=== PATIENT | female | born 1960 | race Caucasian/White ===

== ENCOUNTER 2019-11-25 05:38 | Inpatient (IN) ==
[2019-11-25] MEDS ORDERED: VANCOMYCIN 1,000 MG VIAL ONE (05:53)
[2019-11-25] MEDS ORDERED: DIAZEPAM 5 MG TABLET PO ONE (06:15)
[2019-11-25] MEDS ORDERED: GABAPENTIN 400 MG CAPSULE PO ONE (06:15)
[2019-11-25] MEDS ORDERED: FAMOTIDINE 20 MG TABLET PO ONE (06:15)
[2019-11-25] MEDS ORDERED: ACETAMINOPHEN 500 MG TABLET PO ONE (06:15)
[2019-11-25] MEDS ORDERED: ceFAZolin 2,000 MG in PREMIX 1 EACH IV ONE (06:30)
[2019-11-25] MEDS ORDERED: VANCOMYCIN INJ 1,000 MG in SODIUM CHLORIDE 0.9% 250 ML IV ONE ×2 (06:30→18:57)
[2019-11-25] MEDS ORDERED: ROPIVACAINE 0.5% 30 ML VIAL ONE (06:58)
[2019-11-25] MEDS ORDERED: DEXAMETHASONE 4 MG/1 ML VIAL ONE (06:58)
[2019-11-25] MEDS ORDERED: GABAPENTIN 400 MG CAPSULE ONE (06:59)
[2019-11-25] MEDS ORDERED: FAMOTIDINE 20 MG TABLET ONE (06:59)
[2019-11-25] MEDS ORDERED: ACETAMINOPHEN 500 MG TABLET ONE (06:59)
[2019-11-25] MEDS ORDERED: DIAZEPAM 5 MG TABLET ONE (06:59)
[2019-11-25] MEDS ORDERED: LACTATED RINGERS 1,000 ML IV SCH (07:00)
[2019-11-25] MEDS ORDERED: BACITRACIN OINT 0.9 GM PACK TOP ONE (08:11)
[2019-11-25] MEDS ORDERED: MORPHINE 4 MG/1 ML VIAL IV PRN (10:57)
[2019-11-25] MEDS ORDERED: ONDANSETRON 4 MG/2 ML VIAL IV PRN (10:57)
[2019-11-25] MEDS ORDERED: diphenhydrAMINE CAP 25 MG CAPSULE PO PRN (10:57)
[2019-11-25] MEDS ORDERED: MAGNESIUM HYDROXIDE SUSP 30 ML UDCUP PO PRN (10:57)
[2019-11-25] MEDS ORDERED: propofoL 200 MG/20 ML VIAL IV ONE (11:10)
[2019-11-25] MEDS ORDERED: LIDOCAINE 2% 5 ML VIAL ONE (11:10)
[2019-11-25] MEDS ORDERED: KETAMINE 500 MG/10 ML VIAL ONE (11:10)
[2019-11-25] MEDS ORDERED: BUPIVACAINE SPINAL 0.75% 2 ML AMP SPINAL ONE (11:10)
[2019-11-25] MEDS ORDERED: SODIUM CHLORIDE 0.9% 500 ML IV ONE (11:11)
[2019-11-25] MEDS ORDERED: ESMOLOL 100 MG/10 ML VIAL IV ONE (11:11)
[2019-11-25] MEDS ORDERED: ACETAMINOPHEN 1,000 MG/100 ML VIAL IV ONE (11:11)
[2019-11-25] MEDS ORDERED: TRANEXAMIC ACID 1,000 MG/10 ML VIAL ONE (11:11)
[2019-11-25] MEDS ORDERED: SODIUM CHLORIDE 0.9% 100 ML IV ONE (11:11)
[2019-11-25] MEDS ORDERED: MIDAZOLAM 2 MG/2 ML VIAL ONE (11:11)
[2019-11-25] MEDS ORDERED: fentaNYL 100 MCG/2 ML VIAL ONE (11:11)
[2019-11-25] MEDS: GABAPENTIN 300 MG CAPSULE PO SCH ×3 (13:58→22:42)
[2019-11-25] MEDS: lamoTRIgine 100 MG TABLET PO SCH (13:58)
[2019-11-25] MEDS: KETOROLAC 30 MG/1 ML VIAL IV SCH ×2 (13:59→20:19)
[2019-11-25] MEDS: MORPHINE 4 MG/1 ML VIAL IV PRN ×2 (14:02→22:47)
[2019-11-25] MEDS: LACTATED RINGERS 1,000 ML IV SCH (14:09)
[2019-11-25] MEDS: ceFAZolin 2,000 MG in PREMIX 1 EACH IV SCH (15:08)
[2019-11-25] MEDS: ARIPiprazole 5 MG TABLET PO SCH (22:41)
[2019-11-25] MEDS: DOCUSATE SODIUM 100 MG CAPSULE PO SCH (22:41)
[2019-11-25] MEDS: clonazePAM 0.5 MG TABLET PO SCH (22:42)
[2019-11-25] MEDS: QUEtiapine 100 MG TABLET PO SCH (22:42)
[2019-11-26] MEDS: KETOROLAC 30 MG/1 ML VIAL IV SCH ×2 (00:47→05:48)
[2019-11-26] MEDS ORDERED: ceFAZolin 2,000 MG in PREMIX 1 EACH IV SCH (01:00)
[2019-11-26] MEDS: ceFAZolin 2,000 MG in PREMIX 1 EACH IV SCH (01:53)
[2019-11-26] MEDS: FONDAPARINUX 2.5 MG/0.5 ML SYRINGE SUBCUT SCH (05:49)
[2019-11-26 05:51] LABS: Basophils % 0.3 % (0.0-0.8); Eosinophils % 0.1 % (0.00-10.9); Hematocrit 35.7 VOL% (35.7-47.0); Hemoglobin 11.2 GM/DL (12.0-16.0); Immature Granulocytes % 0.5 %; Immature Granulocytes Absolute 0.05 #; Lymphocytes # 1.6 10*3/uL (1.4-4.0); Lymphocytes % 16.6 % (21.3-54.2); Mean Corpuscular HGB Conc 31.4 GM/DL (32-36); Mean Corpuscular Volume 96.7 FL (87-102); Mean Platelet Volume 10.8 FL (9.6-12.0); Monocytes % 7.9 % (1.7-12.7); Neutrophils % 74.6 % (38.7-73.9); Platelet Count 136 T/CUMM (130-400); Red Blood Count 3.69 MC/CUMM (3.8-5.5); Red Cell Distribution Width 13.5 % (9.3-17.3); White Blood Count 9.6 T/CUMM (4-12)
[2019-11-26 06:17] LABS: Calcium 8.6 MG/DL (8.5-10.1); Osmolality,Calculated 283.8 MOS/KG (273-304)
[2019-11-26] MEDS: lamoTRIgine 100 MG TABLET PO SCH (08:39)
[2019-11-26] MEDS: FLUoxetine 20 MG CAPSULE PO SCH (08:39)
[2019-11-26] MEDS: GABAPENTIN 300 MG CAPSULE PO SCH ×4 (08:39→22:34)
[2019-11-26] MEDS: DOCUSATE SODIUM 100 MG CAPSULE PO SCH ×2 (08:41→22:34)
[2019-11-26] MEDS: ARIPiprazole 5 MG TABLET PO SCH (22:33)
[2019-11-26] MEDS: clonazePAM 0.5 MG TABLET PO SCH (22:33)
[2019-11-26] MEDS: QUEtiapine 100 MG TABLET PO SCH (22:33)
[2019-11-27] MEDS: LACTATED RINGERS 1,000 ML IV SCH (04:25)
[2019-11-27 06:00] LABS: Basophils % 0.5 % (0.0-0.8); Eosinophils # 0.2 10*3/uL (0.0-0.87); Eosinophils % 2.2 % (0.00-10.9); Hematocrit 35.5 VOL% (35.7-47.0); Hemoglobin 10.9 GM/DL (12.0-16.0); Immature Granulocytes % 0.9 %; Immature Granulocytes Absolute 0.07 #; Lymphocytes # 1.7 10*3/uL (1.4-4.0); Mean Corpuscular HGB Conc 30.7 GM/DL (32-36); Mean Corpuscular Volume 98.9 FL (87-102); Mean Platelet Volume 10.5 FL (9.6-12.0); Monocytes % 8.7 % (1.7-12.7); Neutrophils % 65.7 % (38.7-73.9); Platelet Count 116 T/CUMM (130-400); Red Blood Count 3.59 MC/CUMM (3.8-5.5); Red Cell Distribution Width 13.7 % (9.3-17.3); White Blood Count 7.6 T/CUMM (4-12)
[2019-11-27] MEDS: FONDAPARINUX 2.5 MG/0.5 ML SYRINGE SUBCUT SCH (06:04)
[2019-11-27] MEDS: DOCUSATE SODIUM 100 MG CAPSULE PO SCH ×2 (09:26→22:02)
[2019-11-27] MEDS: lamoTRIgine 100 MG TABLET PO SCH (09:26)
[2019-11-27] MEDS: GABAPENTIN 300 MG CAPSULE PO SCH ×4 (09:26→21:59)
[2019-11-27] MEDS: FLUoxetine 20 MG CAPSULE PO SCH (09:26)
[2019-11-27] MEDS: QUEtiapine 100 MG TABLET PO SCH (21:58)
[2019-11-27] MEDS: ARIPiprazole 5 MG TABLET PO SCH (21:58)
[2019-11-27] MEDS: clonazePAM 0.5 MG TABLET PO SCH (21:58)
[2019-11-28] MEDS: FONDAPARINUX 2.5 MG/0.5 ML SYRINGE SUBCUT SCH (06:20)
[2019-11-28 06:23] LABS: Basophils % 0.6 % (0.0-0.8); Eosinophils # 0.2 10*3/uL (0.0-0.87); Eosinophils % 2.9 % (0.00-10.9); Hematocrit 34.6 VOL% (35.7-47.0); Hemoglobin 10.8 GM/DL (12.0-16.0); Immature Granulocytes % 0.8 %; Immature Granulocytes Absolute 0.06 #; Lymphocytes # 1.9 10*3/uL (1.4-4.0); Lymphocytes % 26.5 % (21.3-54.2); Mean Corpuscular HGB Conc 31.2 GM/DL (32-36); Mean Corpuscular Volume 96.4 FL (87-102); Mean Platelet Volume 10.6 FL (9.6-12.0); Monocytes % 8.8 % (1.7-12.7); Neutrophils % 60.4 % (38.7-73.9); Platelet Count 122 T/CUMM (130-400); Red Blood Count 3.59 MC/CUMM (3.8-5.5); Red Cell Distribution Width 13.9 % (9.3-17.3); White Blood Count 7.3 T/CUMM (4-12)
[2019-11-28] MEDS: FLUoxetine 20 MG CAPSULE PO SCH (09:35)
[2019-11-28] MEDS: lamoTRIgine 100 MG TABLET PO SCH (09:35)
[2019-11-28] MEDS: GABAPENTIN 300 MG CAPSULE PO SCH (09:35)
[2019-11-28] MEDS: DOCUSATE SODIUM 100 MG CAPSULE PO SCH (09:36)
[2019-11-28 12:31] VITALS: BP 118/62
== END 2019-11-28 13:52 | disposition home health service (06) | DRG 470 ==
LOC: N.OR 05:38 → N.SDSINP 05:39 → N.3E 10:05
PROVIDERS: ADMIT Orthopaedic Surgery; ATTEND Orthopaedic Surgery

== ENCOUNTER 2020-10-08 13:01 | Inpatient (IN) ==
[2020-10-08] MEDS ORDERED: SODIUM CHLORIDE 0.9% 1,000 ML IV STA (14:20)
[2020-10-08] MEDS ORDERED: ONDANSETRON 4 MG/2 ML VIAL IV STA (14:20)
[2020-10-08 15:08] LABS: Albumin 2.9 G/DL (3.4-5.0); Calcium 10.6 MG/DL (8.5-10.1); Osmolality,Calculated 271.4 MOS/KG (273-304); Potassium 3.9 MMOL/L (3.5-5.1); Total Protein 9.7 G/DL (6.4-8.3)
[2020-10-08 15:39] LABS: Basophils # 0.1 10*3/uL (0.0-0.2); Basophils % 0.7 % (0.0-0.8); Eosinophils % 0.2 % (0.00-10.9); Hematocrit 42.7 VOL% (35.7-47.0); Hemoglobin 13.4 GM/DL (12.0-16.0); Immature Granulocytes % 0.5 %; Immature Granulocytes Absolute 0.05 #; Lymphocytes # 1.6 10*3/uL (1.4-4.0); Lymphocytes % 15.9 % (21.3-54.2); Mean Corpuscular HGB Conc 31.4 GM/DL (32-36); Mean Corpuscular Volume 88.4 FL (87-102); Mean Platelet Volume 10.8 FL (9.6-12.0); Monocytes % 8.3 % (1.7-12.7); Neutrophils % 74.4 % (38.7-73.9); Platelet Count 311 T/CUMM (130-400); Red Blood Count 4.83 MC/CUMM (3.8-5.5); Red Cell Distribution Width 13.4 % (9.3-17.3); White Blood Count 9.9 T/CUMM (4-12)
[2020-10-08] MEDS ORDERED: PROMETHAZINE 25 MG/1 ML VIAL ONE (16:07)
[2020-10-08] MEDS ORDERED: PROMETHAZINE 25 MG/1 ML VIAL IM STA (16:14)
[2020-10-08] MEDS ORDERED: GLUCAGON 1 MG VIAL IM PRN ×2 (17:16)
[2020-10-08] MEDS ORDERED: DOCUSATE SODIUM 100 MG CAPSULE PO PRN (17:16)
[2020-10-08] MEDS ORDERED: DEXTROSE 50% 25 GM/50 ML VIAL IV PRN ×2 (17:16)
[2020-10-08 18:27] LABS: Bilirubin,Urine Negative (Negative); Blood, Urine Large mg/dL (Negative); Glucose,Urine (UA) >=500 mg/dL (Negative); Ketones,Urine 20 mg/dL (Negative); Mucus,Urine Few /LPF (Occasional); Nitrite,Urine Negative (Negative); Protein,Urine >=500 MG/DL; RBC,Urine 168 /HPF (0-4); Squamous Epithelial Cell,Urine Occasional /HPF (0-10); Urine Appearance CLEAR (Clear); Urine Color Amber (Yellow); Urine Specific Gravity > 1.060 (1.001-1.035); Urine Urobilinogen < 2.0 EU/DL (0.2-1.0); WBC,Urine 19 /HPF (0-6)
[2020-10-08] MEDS: ONDANSETRON 4 MG/2 ML VIAL IV PRN (19:03)
[2020-10-08] MEDS: SODIUM CHLORIDE 0.9% 1,000 ML IV SCH (20:19)
[2020-10-08] MEDS: INSULIN REGULAR 100 UNIT/ML SUBCUT SCH (20:19)
[2020-10-08] MEDS: ENOXAPARIN 40 MG/0.4 ML SYRINGE SUBCUT SCH (22:28)
[2020-10-08] MEDS: PROMETHAZINE INJ 25 MG in SODIUM CHLORIDE 0.9% 50 ML IV PRN (22:42)
[2020-10-09] MEDS: ONDANSETRON 4 MG/2 ML VIAL IV PRN ×5 (00:52→23:24)
[2020-10-09] MEDS: PROMETHAZINE INJ 25 MG in SODIUM CHLORIDE 0.9% 50 ML IV PRN ×2 (03:48→08:48)
[2020-10-09 07:06] LABS: Basophils # 0.1 10*3/uL (0.0-0.2); Basophils % 0.6 % (0.0-0.8); Eosinophils % 0.1 % (0.00-10.9); Hemoglobin 13.5 GM/DL (12.0-16.0); Immature Granulocytes % 0.5 %; Immature Granulocytes Absolute 0.06 #; Lymphocytes # 2.3 10*3/uL (1.4-4.0); Lymphocytes % 17.5 % (21.3-54.2); Mean Corpuscular HGB Conc 31.4 GM/DL (32-36); Mean Platelet Volume 11.2 FL (9.6-12.0); Neutrophils % 73.3 % (38.7-73.9); Platelet Count 387 T/CUMM (130-400); Red Blood Count 4.83 MC/CUMM (3.8-5.5); Red Cell Distribution Width 13.6 % (9.3-17.3)
[2020-10-09 08:24] LABS: Calcium 10.1 MG/DL (8.5-10.1); Osmolality,Calculated 285.7 MOS/KG (273-304); Potassium 3.1 MMOL/L (3.5-5.1)
[2020-10-09] MEDS: MORPHINE 4 MG/1 ML VIAL IV PRN ×3 (08:37→16:27)
[2020-10-09] MEDS: PANTOPRAZOLE 40 MG VIAL IV SCH (08:38)
[2020-10-09] MEDS: INSULIN REGULAR 100 UNIT/ML SUBCUT SCH ×4 (08:38→20:18)
[2020-10-09] MEDS: SODIUM CHLORIDE 0.9% 1,000 ML IV SCH (12:22)
[2020-10-09] MEDS ORDERED: ACETAMINOPHEN 325 MG TABLET PO PRN (12:27)
[2020-10-09] MEDS: POTASSIUM CHLORIDE RIDER 10 MEQ in PREMIX 1 EACH IV PRN ×4 (12:52→17:06)
[2020-10-09] MEDS: ENOXAPARIN 40 MG/0.4 ML SYRINGE SUBCUT SCH (20:19)
[2020-10-09] MEDS: ARIPiprazole 10 MG TABLET PO SCH (20:19)
[2020-10-09] MEDS: QUEtiapine 100 MG TABLET PO SCH (20:20)
[2020-10-09] MEDS: clonazePAM 0.5 MG TABLET PO SCH (20:20)
[2020-10-10] MEDS: SODIUM CHLORIDE 0.9% 1,000 ML IV SCH ×2 (02:36→13:52)
[2020-10-10] MEDS: MORPHINE 4 MG/1 ML VIAL IV PRN ×2 (04:14→19:47)
[2020-10-10 06:39] LABS: Basophils # 0.1 10*3/uL (0.0-0.2); Basophils % 0.5 % (0.0-0.8); Eosinophils % 0.1 % (0.00-10.9); Hematocrit 42.8 VOL% (35.7-47.0); Hemoglobin 13.4 GM/DL (12.0-16.0); Immature Granulocytes % 0.3 %; Immature Granulocytes Absolute 0.04 #; Lymphocytes # 2.3 10*3/uL (1.4-4.0); Lymphocytes % 17.6 % (21.3-54.2); Mean Corpuscular HGB Conc 31.3 GM/DL (32-36); Mean Corpuscular Volume 89.4 FL (87-102); Mean Platelet Volume 10.4 FL (9.6-12.0); Monocytes % 6.6 % (1.7-12.7); Neutrophils % 74.9 % (38.7-73.9); Platelet Count 337 T/CUMM (130-400); Red Blood Count 4.79 MC/CUMM (3.8-5.5); Red Cell Distribution Width 13.5 % (9.3-17.3); White Blood Count 13.1 T/CUMM (4-12)
[2020-10-10 06:45] LABS: Bilirubin,Total 0.8 MG/DL (0.2-1.0); Calcium 9.4 MG/DL (8.5-10.1); Osmolality,Calculated 294.1 MOS/KG (273-304); Potassium 3.6 MMOL/L (3.5-5.1); Total Protein 9.2 G/DL (6.4-8.3)
[2020-10-10] MEDS: lamoTRIgine 100 MG TABLET PO SCH (08:29)
[2020-10-10] MEDS: PANTOPRAZOLE 40 MG VIAL IV SCH (08:29)
[2020-10-10] MEDS: INSULIN REGULAR 100 UNIT/ML SUBCUT SCH ×4 (08:30→20:41)
[2020-10-10] MEDS: FLUoxetine 20 MG CAPSULE PO SCH (08:30)
[2020-10-10] MEDS: ONDANSETRON 4 MG/2 ML VIAL IV PRN ×3 (08:34→19:46)
[2020-10-10] MEDS: PROMETHAZINE INJ 25 MG in SODIUM CHLORIDE 0.9% 50 ML IV PRN (13:52)
[2020-10-10] MEDS: ARIPiprazole 10 MG TABLET PO SCH (20:40)
[2020-10-10] MEDS: clonazePAM 0.5 MG TABLET PO SCH (20:41)
[2020-10-10] MEDS: QUEtiapine 100 MG TABLET PO SCH (20:41)
[2020-10-10] MEDS: INSULIN GLARGINE 100 UNIT/ML SUBCUT SCH (20:41)
[2020-10-10] MEDS: ENOXAPARIN 40 MG/0.4 ML SYRINGE SUBCUT SCH (20:42)
[2020-10-11] MEDS: ONDANSETRON 4 MG/2 ML VIAL IV PRN ×4 (03:09→21:29)
[2020-10-11] MEDS: MORPHINE 4 MG/1 ML VIAL IV PRN ×3 (03:11→21:29)
[2020-10-11] MEDS: SODIUM CHLORIDE 0.9% 1,000 ML IV SCH ×2 (03:14→21:30)
[2020-10-11 05:29] LABS: Basophils # 0.1 10*3/uL (0.0-0.2); Basophils % 0.7 % (0.0-0.8); Eosinophils % 0.1 % (0.00-10.9); Hematocrit 40.8 VOL% (35.7-47.0); Hemoglobin 12.6 GM/DL (12.0-16.0); Immature Granulocytes % 0.4 %; Immature Granulocytes Absolute 0.04 #; Lymphocytes # 1.9 10*3/uL (1.4-4.0); Lymphocytes % 18.3 % (21.3-54.2); Mean Corpuscular HGB Conc 30.9 GM/DL (32-36); Mean Corpuscular Volume 88.9 FL (87-102); Mean Platelet Volume 10.6 FL (9.6-12.0); Monocytes % 7.1 % (1.7-12.7); Neutrophils % 73.4 % (38.7-73.9); Platelet Count 275 T/CUMM (130-400); Red Blood Count 4.59 MC/CUMM (3.8-5.5); Red Cell Distribution Width 13.7 % (9.3-17.3); White Blood Count 10.4 T/CUMM (4-12)
[2020-10-11 06:02] LABS: Albumin 2.6 G/DL (3.4-5.0); Bilirubin,Total 0.8 MG/DL (0.2-1.0); Calcium 9.3 MG/DL (8.5-10.1); Osmolality,Calculated 290.1 MOS/KG (273-304); Potassium 3.5 MMOL/L (3.5-5.1); Total Protein 8.5 G/DL (6.4-8.3)
[2020-10-11] MEDS: INSULIN REGULAR 100 UNIT/ML SUBCUT SCH ×4 (08:52→21:30)
[2020-10-11] MEDS: PANTOPRAZOLE 40 MG VIAL IV SCH (08:54)
[2020-10-11] MEDS: lamoTRIgine 100 MG TABLET PO SCH (09:14)
[2020-10-11] MEDS: FLUoxetine 20 MG CAPSULE PO SCH (09:15)
[2020-10-11] MEDS ORDERED: LACTATED RINGERS 1,000 ML IV SCH (14:30)
[2020-10-11] MEDS ORDERED: propofoL 200 MG/20 ML VIAL IV ONE ×2 (14:39→14:47)
[2020-10-11] MEDS ORDERED: LIDOCAINE 2% 5 ML VIAL ONE (14:39)
[2020-10-11] MEDS: ARIPiprazole 10 MG TABLET PO SCH (21:27)
[2020-10-11] MEDS: QUEtiapine 100 MG TABLET PO SCH (21:28)
[2020-10-11] MEDS: ENOXAPARIN 40 MG/0.4 ML SYRINGE SUBCUT SCH (21:28)
[2020-10-11] MEDS: clonazePAM 0.5 MG TABLET PO SCH (21:28)
[2020-10-11] MEDS: INSULIN GLARGINE 100 UNIT/ML SUBCUT SCH (21:29)
[2020-10-12] MEDS: PROMETHAZINE INJ 25 MG in SODIUM CHLORIDE 0.9% 50 ML IV PRN ×2 (00:08→13:10)
[2020-10-12] MEDS: ONDANSETRON 4 MG/2 ML VIAL IV PRN ×2 (02:09→20:12)
[2020-10-12] MEDS: MORPHINE 4 MG/1 ML VIAL IV PRN ×3 (04:32→19:10)
[2020-10-12] MEDS: INSULIN REGULAR 100 UNIT/ML SUBCUT SCH ×4 (09:07→23:06)
[2020-10-12] MEDS: FLUoxetine 20 MG CAPSULE PO SCH ×2 (09:09→10:25)
[2020-10-12] MEDS: lamoTRIgine 100 MG TABLET PO SCH ×2 (09:09→10:25)
[2020-10-12] MEDS: PANTOPRAZOLE 40 MG VIAL IV SCH (09:10)
[2020-10-12] MEDS ORDERED: ceFAZolin 1,000 MG in SYRINGE 1 EACH IV ONE (14:07)
[2020-10-12] MEDS: SODIUM CHLORIDE 0.9% 1,000 ML IV SCH ×2 (18:06→19:00)
[2020-10-12] MEDS: ENOXAPARIN 40 MG/0.4 ML SYRINGE SUBCUT SCH (21:58)
[2020-10-12] MEDS: QUEtiapine 100 MG TABLET PO SCH (21:58)
[2020-10-12] MEDS: INSULIN GLARGINE 100 UNIT/ML SUBCUT SCH (21:58)
[2020-10-12] MEDS: ARIPiprazole 10 MG TABLET PO SCH (21:59)
[2020-10-12] MEDS: clonazePAM 0.5 MG TABLET PO SCH (22:06)
[2020-10-13] MEDS: MORPHINE 4 MG/1 ML VIAL IV PRN (03:16)
[2020-10-13] MEDS: PROMETHAZINE INJ 25 MG in SODIUM CHLORIDE 0.9% 50 ML IV PRN (03:17)
[2020-10-13 05:49] LABS: Basophils # 0.1 10*3/uL (0.0-0.2); Basophils % 0.4 % (0.0-0.8); Eosinophils # 0.1 10*3/uL (0.0-0.87); Eosinophils % 0.8 % (0.00-10.9); Hematocrit 38.8 VOL% (35.7-47.0); Immature Granulocytes % 0.6 %; Immature Granulocytes Absolute 0.07 #; Lymphocytes # 1.4 10*3/uL (1.4-4.0); Lymphocytes % 11.9 % (21.3-54.2); Mean Corpuscular HGB Conc 30.9 GM/DL (32-36); Mean Corpuscular Volume 91.1 FL (87-102); Mean Platelet Volume 11.3 FL (9.6-12.0); Monocytes % 5.3 % (1.7-12.7); Platelet Count 190 T/CUMM (130-400); Red Blood Count 4.26 MC/CUMM (3.8-5.5); Red Cell Distribution Width 13.8 % (9.3-17.3); White Blood Count 11.6 T/CUMM (4-12)
[2020-10-13 06:11] LABS: Albumin 2.5 G/DL (3.4-5.0); Bilirubin,Total 0.9 MG/DL (0.2-1.0); Calcium 8.7 MG/DL (8.5-10.1); Osmolality,Calculated 288.5 MOS/KG (273-304); Potassium 3.3 MMOL/L (3.5-5.1); Total Protein 7.9 G/DL (6.4-8.3)
[2020-10-13] MEDS ORDERED: ceFAZolin 1,000 MG VIAL IM ONE (08:15)
[2020-10-13] MEDS: INSULIN REGULAR 100 UNIT/ML SUBCUT SCH ×4 (08:18→22:41)
[2020-10-13] MEDS ORDERED: LIDOCAINE 1%/EPI INJ 20 ML VIAL ONE (08:28)
[2020-10-13] MEDS ORDERED: TISSUE ADHESIVE 1 EACH APPLICATOR TOP ONE (08:28)
[2020-10-13] MEDS ORDERED: BUPIVACAINE MPF 0.25% 30 ML VIAL ONE (08:28)
[2020-10-13] MEDS ORDERED: MIDAZOLAM 2 MG/2 ML VIAL ONE (08:38)
[2020-10-13] MEDS ORDERED: ROCURONIUM 50 MG/5 ML VIAL IV ONE ×2 (08:38→10:23)
[2020-10-13] MEDS ORDERED: propofoL 200 MG/20 ML VIAL IV ONE (08:38)
[2020-10-13] MEDS ORDERED: LIDOCAINE 2% 5 ML VIAL ONE (08:38)
[2020-10-13] MEDS ORDERED: fentaNYL 100 MCG/2 ML VIAL ONE (08:38)
[2020-10-13] MEDS: PANTOPRAZOLE 40 MG VIAL IV SCH (09:05)
[2020-10-13] MEDS ORDERED: ONDANSETRON 4 MG/2 ML VIAL ONE ×2 (09:18→11:58)
[2020-10-13] MEDS ORDERED: SEVOFLURANE 1 UNIT/15 MINUTE INH ONE ×11 (09:18→11:57)
[2020-10-13] MEDS ORDERED: ceFAZolin 1,000 MG VIAL ONE (09:18)
[2020-10-13] MEDS ORDERED: ACETAMINOPHEN 1,000 MG/100 ML VIAL IV ONE (09:18)
[2020-10-13] MEDS ORDERED: NEOSTIGMINE 10 MG/10 ML VIAL ONE ×5 (11:46)
[2020-10-13] MEDS ORDERED: GLYCOPYRROLATE 0.4 MG/2 ML VIAL ONE ×2 (11:46)
[2020-10-13] MEDS ORDERED: ONDANSETRON 4 MG/2 ML VIAL IV PRN (12:27)
[2020-10-13] MEDS ORDERED: diphenhydrAMINE 50 MG/1 ML VIAL IV PRN (12:27)
[2020-10-13] MEDS ORDERED: MEPERIDINE 25 MG/1 ML VIAL IV PRN (12:27)
[2020-10-13] MEDS ORDERED: PROMETHAZINE INJ 25 MG in SODIUM CHLORIDE 0.9% 50 ML IV PRN (12:27)
[2020-10-13] MEDS ORDERED: HYDROmorphone 2 MG/1 ML VIAL IV PRN (12:27)
[2020-10-13 12:57] LABS: Bilirubin,Urine Negative (Negative); Blood, Urine Large mg/dL (Negative); Glucose,Urine (UA) 3+ mg/dL (Negative); Ketones,Urine Negative (Negative); Nitrite,Urine Negative (Negative); Protein,Urine 2+ MG/DL; Urine Appearance Clear (Clear); Urine Color Brown (Yellow); Urine Specific Gravity 1.015 (1.001-1.035)
[2020-10-13 12:58] LABS: Amorphous Crystals,Urine Few /HPF (Few); Bacteria,Urine Few /HPF (Few); Mucus,Urine Trace /LPF (Occasional); RBC,Urine Trace /HPF (0-4)
[2020-10-13] MEDS: lamoTRIgine 100 MG TABLET PO SCH (14:17)
[2020-10-13] MEDS: FLUoxetine 20 MG CAPSULE PO SCH (14:17)
[2020-10-13] MEDS: HYDROmorphone 2 MG/1 ML VIAL IV PRN ×3 (14:45→23:00)
[2020-10-13] MEDS: POTASSIUM CHLORIDE RIDER 10 MEQ in PREMIX 1 EACH IV PRN (16:18)
[2020-10-13] MEDS ORDERED: DEXTROSE 10% 1,000 ML IV PRN (17:00)
[2020-10-13] MEDS: ZINC/COPPER/MANGANESE/SELENIUM 1 ML, MULTIVITAMIN INJ 10 ML in AMINO ACIDS/DEXT/LYTES 4... IV SCH (18:56)
[2020-10-13] MEDS: clonazePAM 0.5 MG TABLET PO SCH (22:40)
[2020-10-13] MEDS: QUEtiapine 100 MG TABLET PO SCH (22:40)
[2020-10-13] MEDS: ARIPiprazole 10 MG TABLET PO SCH (22:42)
[2020-10-13] MEDS: INSULIN GLARGINE 100 UNIT/ML SUBCUT SCH (22:42)
[2020-10-13] MEDS: ENOXAPARIN 40 MG/0.4 ML SYRINGE SUBCUT SCH (22:42)
[2020-10-14 05:38] LABS: Basophils % 0.3 % (0.0-0.8); Eosinophils % 0.2 % (0.00-10.9); Hematocrit 40.4 VOL% (35.7-47.0); Hemoglobin 12.8 GM/DL (12.0-16.0); Immature Granulocytes % 0.4 %; Immature Granulocytes Absolute 0.04 #; Lymphocytes # 1.6 10*3/uL (1.4-4.0); Lymphocytes % 15.6 % (21.3-54.2); Mean Corpuscular HGB Conc 31.7 GM/DL (32-36); Monocytes % 8.7 % (1.7-12.7); Neutrophils % 74.8 % (38.7-73.9); Platelet Count 248 T/CUMM (130-400); Red Blood Count 4.54 MC/CUMM (3.8-5.5); Red Cell Distribution Width 14.4 % (9.3-17.3); White Blood Count 10.2 T/CUMM (4-12)
[2020-10-14 05:58] LABS: Calcium 8.2 MG/DL (8.5-10.1); Osmolality,Calculated 296.8 MOS/KG (273-304); Potassium 3.4 MMOL/L (3.5-5.1)
[2020-10-14] MEDS ORDERED: LACTATED RINGERS 1,000 ML IV ONE ×2 (07:49→10:13)
[2020-10-14] MEDS: ACETAMINOPHEN 650 MG SUPP RECTAL PRN (08:10)
[2020-10-14] MEDS: HYDROmorphone 2 MG/1 ML VIAL IV PRN ×4 (08:59→23:40)
[2020-10-14] MEDS: INSULIN REGULAR 100 UNIT/ML SUBCUT SCH ×4 (09:02→20:43)
[2020-10-14] MEDS: PANTOPRAZOLE 40 MG VIAL IV SCH (09:04)
[2020-10-14] MEDS: lamoTRIgine 100 MG TABLET PO SCH (09:07)
[2020-10-14] MEDS: FLUoxetine 20 MG CAPSULE PO SCH (09:07)
[2020-10-14] MEDS: SODIUM CHLORIDE 0.9% 1,000 ML IV SCH ×2 (10:32→10:33)
[2020-10-14] MEDS ORDERED: ALBUMIN 25% 25 GM in PREMIX 1 EACH IV ONE (13:10)
[2020-10-14] MEDS: FAT EMULSION 20% 250 ML IV SCH (14:20)
[2020-10-14] MEDS ORDERED: ZINC/COPPER/MANGANESE/SELENIUM 1 ML in AMINO ACIDS/DEXT/LYTES 4.25-5% 2,000 ML IV SCH (15:00)
[2020-10-14] MEDS: LACTATED RINGERS 1,000 ML IV SCH (16:50)
[2020-10-14] MEDS: PIPERACILLIN/TAZOBACTAM 3,375 MG in SODIUM CHLORIDE 0.9% 100 ML IV SCH ×2 (17:00→23:39)
[2020-10-14] MEDS: INSULIN GLARGINE 100 UNIT/ML SUBCUT SCH (20:32)
[2020-10-14] MEDS: clonazePAM 0.5 MG TABLET PO SCH (20:38)
[2020-10-14] MEDS: QUEtiapine 100 MG TABLET PO SCH (20:39)
[2020-10-14] MEDS: ARIPiprazole 10 MG TABLET PO SCH (20:39)
[2020-10-14] MEDS: ENOXAPARIN 40 MG/0.4 ML SYRINGE SUBCUT SCH (20:39)
[2020-10-15] MEDS: HYDROmorphone 2 MG/1 ML VIAL IV PRN ×3 (04:04→08:45)
[2020-10-15] MEDS: PIPERACILLIN/TAZOBACTAM 3,375 MG in SODIUM CHLORIDE 0.9% 100 ML IV SCH ×2 (06:01→15:00)
[2020-10-15] MEDS: ACETAMINOPHEN 650 MG SUPP RECTAL PRN (06:01)
[2020-10-15] MEDS: LACTATED RINGERS 1,000 ML IV SCH ×2 (06:01→17:47)
[2020-10-15 08:06] LABS: Basophils % 0.3 % (0.0-0.8); Eosinophils # 0.1 10*3/uL (0.0-0.87); Eosinophils % 0.7 % (0.00-10.9); Hematocrit 35.4 VOL% (35.7-47.0); Immature Granulocytes % 0.8 %; Immature Granulocytes Absolute 0.06 #; Lymphocytes # 1.1 10*3/uL (1.4-4.0); Lymphocytes % 15.2 % (21.3-54.2); Mean Corpuscular HGB Conc 29.9 GM/DL (32-36); Mean Corpuscular Volume 90.1 FL (87-102); Mean Platelet Volume 11.8 FL (9.6-12.0); Monocytes % 10.2 % (1.7-12.7); Neutrophils % 72.8 % (38.7-73.9); Red Blood Count 3.93 MC/CUMM (3.8-5.5); Red Cell Distribution Width 14.4 % (9.3-17.3); White Blood Count 7.4 T/CUMM (4-12)
[2020-10-15 08:07] LABS: Hemoglobin 10.6 GM/DL (12.0-16.0); Platelet Count 165 T/CUMM (130-400)
[2020-10-15 08:26] LABS: Calcium 8.5 MG/DL (8.5-10.1); Osmolality,Calculated 293.8 MOS/KG (273-304); Potassium 3.4 MMOL/L (3.5-5.1)
[2020-10-15] MEDS: INSULIN REGULAR 100 UNIT/ML SUBCUT SCH ×4 (08:45→21:15)
[2020-10-15] MEDS: LEVOFLOXACIN INJ 750 MG in PREMIX 1 EACH IV SCH (09:42)
[2020-10-15] MEDS: ALBUMIN 5% 12.5 GM in PREMIX 1 EACH IV SCH ×3 (10:17→23:11)
[2020-10-15] MEDS: PANTOPRAZOLE 40 MG VIAL IV SCH (10:17)
[2020-10-15] MEDS: lamoTRIgine 100 MG TABLET PO SCH (11:56)
[2020-10-15] MEDS: FLUoxetine 20 MG CAPSULE PO SCH (11:56)
[2020-10-15] MEDS: MENTHOL/ZINC OXIDE OINT 71 GM JAR TOP SCH ×2 (12:48→21:15)
[2020-10-15] MEDS: MORPHINE 4 MG/1 ML VIAL IV PRN ×2 (12:49→20:00)
[2020-10-15 13:06] LABS: Mitochondrial Antibody (M2) <0.1 U
[2020-10-15 13:15] LABS: Smooth Muscle Antibody Negative (Negative)
[2020-10-15] MEDS: ZINC/COPPER/MANGANESE/SELENIUM 1 ML, MULTIVITAMIN INJ 10 ML in AMINO ACIDS/DEXT/LYTES 4... IV SCH (14:44)
[2020-10-15] MEDS: FAT EMULSION 20% 250 ML IV SCH (15:00)
[2020-10-15] MEDS: COPPER IV SCH (17:46)
[2020-10-15] MEDS: ZINC IV SCH (17:46)
[2020-10-15] MEDS: MULTIVITAMIN IV SCH (17:46)
[2020-10-15] MEDS: MANGANESE IV SCH (17:46)
[2020-10-15] MEDS: SELENIUM IV SCH (17:46)
[2020-10-15] MEDS: [UNRECOGNIZED DRUG - OTHER] IV SCH (17:46)
[2020-10-15] MEDS: ENOXAPARIN 40 MG/0.4 ML SYRINGE SUBCUT SCH (21:15)
[2020-10-15] MEDS: ONDANSETRON 4 MG/2 ML VIAL IV PRN (21:15)
[2020-10-15] MEDS: INSULIN GLARGINE 100 UNIT/ML SUBCUT SCH (21:15)
[2020-10-15] MEDS: clonazePAM 0.5 MG TABLET PO SCH (21:16)
[2020-10-15] MEDS: ARIPiprazole 10 MG TABLET PO SCH (21:16)
[2020-10-15] MEDS: QUEtiapine 100 MG TABLET PO SCH (21:17)
[2020-10-16] MEDS: PIPERACILLIN/TAZOBACTAM 3,375 MG in SODIUM CHLORIDE 0.9% 100 ML IV SCH ×3 (00:30→16:26)
[2020-10-16 02:01] LABS: Antinuclear Ab, S 0.3 U
[2020-10-16] MEDS: MORPHINE 4 MG/1 ML VIAL IV PRN ×6 (02:53→22:24)
[2020-10-16] MEDS: ONDANSETRON 4 MG/2 ML VIAL IV PRN ×5 (02:53→22:24)
[2020-10-16] MEDS: PROMETHAZINE INJ 25 MG in SODIUM CHLORIDE 0.9% 50 ML IV PRN (05:19)
[2020-10-16] MEDS: PANTOPRAZOLE 40 MG VIAL IV SCH (09:05)
[2020-10-16] MEDS: LEVOFLOXACIN INJ 750 MG in PREMIX 1 EACH IV SCH (09:06)
[2020-10-16] MEDS: FLUoxetine 20 MG CAPSULE PO SCH (09:06)
[2020-10-16] MEDS: lamoTRIgine 100 MG TABLET PO SCH (09:06)
[2020-10-16] MEDS: ALBUMIN 5% 12.5 GM in PREMIX 1 EACH IV SCH ×3 (10:30→23:28)
[2020-10-16] MEDS: MENTHOL/ZINC OXIDE OINT 71 GM JAR TOP SCH ×2 (11:59→21:33)
[2020-10-16] MEDS: INSULIN REGULAR 100 UNIT/ML SUBCUT SCH ×4 (11:59→21:32)
[2020-10-16] MEDS: INSULIN GLARGINE 100 UNIT/ML SUBCUT SCH ×2 (12:55→21:33)
[2020-10-16] MEDS: SELENIUM IV SCH (14:51)
[2020-10-16] MEDS: MANGANESE IV SCH (14:51)
[2020-10-16] MEDS: ZINC IV SCH (14:51)
[2020-10-16] MEDS: COPPER IV SCH (14:51)
[2020-10-16] MEDS: [UNRECOGNIZED DRUG - OTHER] IV SCH (14:51)
[2020-10-16] MEDS: POTASSIUM CHLORIDE IV SCH (14:51)
[2020-10-16] MEDS: FAT EMULSION 20% 250 ML IV SCH (14:52)
[2020-10-16] MEDS: ARIPiprazole 10 MG TABLET PO SCH (21:31)
[2020-10-16] MEDS: clonazePAM 0.5 MG TABLET PO SCH (21:31)
[2020-10-16] MEDS: QUEtiapine 100 MG TABLET PO SCH (21:32)
[2020-10-16] MEDS: ENOXAPARIN 40 MG/0.4 ML SYRINGE SUBCUT SCH (21:33)
[2020-10-16] MEDS: LACTATED RINGERS 1,000 ML IV SCH (22:24)
[2020-10-17] MEDS: PIPERACILLIN/TAZOBACTAM 3,375 MG in SODIUM CHLORIDE 0.9% 100 ML IV SCH ×4 (00:07→22:59)
[2020-10-17] MEDS: ONDANSETRON 4 MG/2 ML VIAL IV PRN ×4 (05:17→22:59)
[2020-10-17] MEDS: MORPHINE 4 MG/1 ML VIAL IV PRN ×4 (05:18→22:59)
[2020-10-17 05:50] LABS: Basophils % 0.2 % (0.0-0.8); Eosinophils # 0.1 10*3/uL (0.0-0.87); Eosinophils % 2.6 % (0.00-10.9); Hematocrit 31.6 VOL% (35.7-47.0); Hemoglobin 9.6 GM/DL (12.0-16.0); Immature Granulocytes % 0.6 %; Immature Granulocytes Absolute 0.03 #; Lymphocytes # 0.9 10*3/uL (1.4-4.0); Lymphocytes % 17.3 % (21.3-54.2); Mean Corpuscular HGB Conc 30.4 GM/DL (32-36); Mean Platelet Volume 12.1 FL (9.6-12.0); Neutrophils % 68.3 % (38.7-73.9); Platelet Count 107 T/CUMM (130-400); Red Blood Count 3.55 MC/CUMM (3.8-5.5); Red Cell Distribution Width 14.3 % (9.3-17.3)
[2020-10-17 06:19] LABS: Lymphocytes 22 % (20-55); Platelet Estimate Normal; Segmented Neutrophils 66 % (50-85)
[2020-10-17 06:20] LABS: Hypochromasia Slight; Total Cells Counted 100
[2020-10-17 06:32] LABS: Albumin 2.1 G/DL (3.4-5.0); Bilirubin,Total 1.3 MG/DL (0.2-1.0); Calcium 8.4 MG/DL (8.5-10.1); Osmolality,Calculated 292.4 MOS/KG (273-304); Potassium 3.6 MMOL/L (3.5-5.1); Total Protein 6.2 G/DL (6.4-8.3)
[2020-10-17] MEDS: LACTATED RINGERS 1,000 ML IV SCH ×2 (07:03→16:17)
[2020-10-17] MEDS: lamoTRIgine 100 MG TABLET PO SCH (09:29)
[2020-10-17] MEDS: FLUoxetine 20 MG CAPSULE PO SCH (09:30)
[2020-10-17] MEDS: INSULIN GLARGINE 100 UNIT/ML SUBCUT SCH ×2 (09:38→21:32)
[2020-10-17] MEDS: INSULIN REGULAR 100 UNIT/ML SUBCUT SCH ×4 (09:39→21:31)
[2020-10-17] MEDS: PANTOPRAZOLE 40 MG VIAL IV SCH (09:43)
[2020-10-17] MEDS: ALBUMIN 5% 12.5 GM in PREMIX 1 EACH IV SCH ×2 (10:31→21:32)
[2020-10-17] MEDS: MENTHOL/ZINC OXIDE OINT 71 GM JAR TOP SCH ×2 (12:48→21:32)
[2020-10-17] MEDS: LEVOFLOXACIN INJ 750 MG in PREMIX 1 EACH IV SCH (12:48)
[2020-10-17] MEDS: MANGANESE IV SCH (13:50)
[2020-10-17] MEDS: MULTIVITAMIN IV SCH (13:50)
[2020-10-17] MEDS: [UNRECOGNIZED DRUG - OTHER] IV SCH (13:50)
[2020-10-17] MEDS: COPPER IV SCH (13:50)
[2020-10-17] MEDS: SELENIUM IV SCH (13:50)
[2020-10-17] MEDS: ZINC IV SCH (13:50)
[2020-10-17] MEDS: FAT EMULSION 20% 250 ML IV SCH (14:50)
[2020-10-17] MEDS: clonazePAM 0.5 MG TABLET PO SCH (21:30)
[2020-10-17] MEDS: ARIPiprazole 10 MG TABLET PO SCH (21:30)
[2020-10-17] MEDS: ENOXAPARIN 40 MG/0.4 ML SYRINGE SUBCUT SCH (21:31)
[2020-10-17] MEDS: QUEtiapine 100 MG TABLET PO SCH (21:31)
[2020-10-18] MEDS: MORPHINE 4 MG/1 ML VIAL IV PRN ×4 (03:22→21:50)
[2020-10-18] MEDS: ONDANSETRON 4 MG/2 ML VIAL IV PRN ×2 (03:23→17:40)
[2020-10-18] MEDS: ALBUMIN 5% 12.5 GM in PREMIX 1 EACH IV SCH ×3 (05:36→21:53)
[2020-10-18 05:45] LABS: Basophils % 0.3 % (0.0-0.8); Eosinophils # 0.1 10*3/uL (0.0-0.87); Eosinophils % 2.3 % (0.00-10.9); Hematocrit 31.5 VOL% (35.7-47.0); Hemoglobin 9.8 GM/DL (12.0-16.0); Immature Granulocytes % 1.2 %; Immature Granulocytes Absolute 0.07 #; Lymphocytes # 1.1 10*3/uL (1.4-4.0); Lymphocytes % 18.7 % (21.3-54.2); Mean Corpuscular HGB Conc 31.1 GM/DL (32-36); Mean Corpuscular Volume 87.5 FL (87-102); Mean Platelet Volume 12.5 FL (9.6-12.0); Monocytes % 8.8 % (1.7-12.7); Neutrophils % 68.7 % (38.7-73.9); Platelet Count 111 T/CUMM (130-400); Red Cell Distribution Width 14.4 % (9.3-17.3); White Blood Count 6.1 T/CUMM (4-12)
[2020-10-18 06:13] LABS: Hypochromasia 1+; Microcytosis 1+
[2020-10-18 06:17] LABS: Calcium 8.2 MG/DL (8.5-10.1); Osmolality,Calculated 285.8 MOS/KG (273-304); Potassium 3.8 MMOL/L (3.5-5.1)
[2020-10-18 06:20] LABS: Albumin 1.9 G/DL (3.4-5.0); Bilirubin,Total 1.1 MG/DL (0.2-1.0); Calcium 8.2 MG/DL (8.5-10.1); Osmolality,Calculated 287.7 MOS/KG (273-304); Potassium 3.8 MMOL/L (3.5-5.1)
[2020-10-18] MEDS: PIPERACILLIN/TAZOBACTAM 3,375 MG in SODIUM CHLORIDE 0.9% 100 ML IV SCH ×2 (06:32→17:40)
[2020-10-18] MEDS: FLUoxetine 20 MG CAPSULE PO SCH (10:21)
[2020-10-18] MEDS: lamoTRIgine 100 MG TABLET PO SCH (10:21)
[2020-10-18] MEDS: INSULIN REGULAR 100 UNIT/ML SUBCUT SCH ×4 (10:21→21:52)
[2020-10-18] MEDS: INSULIN GLARGINE 100 UNIT/ML SUBCUT SCH ×2 (10:22→21:51)
[2020-10-18] MEDS: PANTOPRAZOLE 40 MG VIAL IV SCH (10:22)
[2020-10-18] MEDS: LEVOFLOXACIN INJ 750 MG in PREMIX 1 EACH IV SCH (10:23)
[2020-10-18] MEDS: MENTHOL/ZINC OXIDE OINT 71 GM JAR TOP SCH ×2 (10:23→21:51)
[2020-10-18] MEDS: LACTATED RINGERS 1,000 ML IV SCH ×2 (10:24→10:29)
[2020-10-18] MEDS: COPPER IV SCH (10:27)
[2020-10-18] MEDS: [UNRECOGNIZED DRUG - OTHER] IV SCH (10:27)
[2020-10-18] MEDS: MANGANESE IV SCH (10:27)
[2020-10-18] MEDS: SELENIUM IV SCH (10:27)
[2020-10-18] MEDS: POTASSIUM CHLORIDE IV SCH (10:27)
[2020-10-18] MEDS: ZINC IV SCH (10:27)
[2020-10-18] MEDS: FAT EMULSION 20% 250 ML IV SCH (18:09)
[2020-10-18] MEDS: clonazePAM 0.5 MG TABLET PO SCH (21:51)
[2020-10-18] MEDS: FONDAPARINUX 2.5 MG/0.5 ML SYRINGE SUBCUT SCH (21:52)
[2020-10-18] MEDS: QUEtiapine 100 MG TABLET PO SCH (21:53)
[2020-10-18] MEDS: ARIPiprazole 10 MG TABLET PO SCH (21:53)
[2020-10-19] MEDS: PIPERACILLIN/TAZOBACTAM 3,375 MG in SODIUM CHLORIDE 0.9% 100 ML IV SCH ×3 (00:02→18:12)
[2020-10-19] MEDS: LACTATED RINGERS 1,000 ML IV SCH ×2 (00:03→18:56)
[2020-10-19] MEDS: MORPHINE 4 MG/1 ML VIAL IV PRN ×6 (03:07→22:55)
[2020-10-19] MEDS: ONDANSETRON 4 MG/2 ML VIAL IV PRN ×4 (03:07→20:24)
[2020-10-19] MEDS: ALBUMIN 5% 12.5 GM in PREMIX 1 EACH IV SCH ×3 (04:31→23:07)
[2020-10-19 06:30] LABS: Basophils % 0.5 % (0.0-0.8); Eosinophils # 0.1 10*3/uL (0.0-0.87); Eosinophils % 1.9 % (0.00-10.9); Hematocrit 31.1 VOL% (35.7-47.0); Hemoglobin 9.6 GM/DL (12.0-16.0); Immature Granulocytes % 1.4 %; Immature Granulocytes Absolute 0.09 #; Lymphocytes # 1.2 10*3/uL (1.4-4.0); Mean Corpuscular HGB Conc 30.9 GM/DL (32-36); Mean Corpuscular Volume 89.4 FL (87-102); Mean Platelet Volume 12.6 FL (9.6-12.0); Monocytes % 7.3 % (1.7-12.7); Neutrophils % 69.9 % (38.7-73.9); Platelet Count 122 T/CUMM (130-400); Red Blood Count 3.48 MC/CUMM (3.8-5.5); Red Cell Distribution Width 14.6 % (9.3-17.3); White Blood Count 6.5 T/CUMM (4-12)
[2020-10-19 06:55] LABS: Eosinophils 2 % (0-10); Hypochromasia Slight; Lymphocytes 14 % (20-55); Platelet Estimate Normal; Segmented Neutrophils 80 % (50-85); Total Cells Counted 100
[2020-10-19 06:56] LABS: Albumin 2.1 G/DL (3.4-5.0); Bilirubin,Total 1.3 MG/DL (0.2-1.0); Calcium 8.2 MG/DL (8.5-10.1); Potassium 3.6 MMOL/L (3.5-5.1); Total Protein 6.1 G/DL (6.4-8.3)
[2020-10-19] MEDS: FLUoxetine 20 MG CAPSULE PO SCH (09:33)
[2020-10-19] MEDS: lamoTRIgine 100 MG TABLET PO SCH (09:33)
[2020-10-19] MEDS: LEVOFLOXACIN INJ 750 MG in PREMIX 1 EACH IV SCH (09:34)
[2020-10-19] MEDS: INSULIN GLARGINE 100 UNIT/ML SUBCUT SCH ×2 (09:35→22:51)
[2020-10-19] MEDS: INSULIN REGULAR 100 UNIT/ML SUBCUT SCH ×4 (09:35→22:52)
[2020-10-19] MEDS: MULTIVITAMIN IV SCH (09:36)
[2020-10-19] MEDS: COPPER IV SCH ×2 (09:36→09:37)
[2020-10-19] MEDS: [UNRECOGNIZED DRUG - OTHER] IV SCH (09:36)
[2020-10-19] MEDS: SELENIUM IV SCH ×2 (09:36→09:37)
[2020-10-19] MEDS: PANTOPRAZOLE 40 MG VIAL IV SCH (09:36)
[2020-10-19] MEDS: ZINC IV SCH ×2 (09:36→09:37)
[2020-10-19] MEDS: MENTHOL/ZINC OXIDE OINT 71 GM JAR TOP SCH ×2 (09:36→22:53)
[2020-10-19] MEDS: MANGANESE IV SCH ×2 (09:36→09:37)
[2020-10-19] MEDS: POTASSIUM CHLORIDE IV SCH (09:37)
[2020-10-19] MEDS: [UNRECOGNIZED DRUG - OTHER] IV SCH (09:37)
[2020-10-19] MEDS: FAT EMULSION 20% 250 ML IV SCH (13:30)
[2020-10-19] MEDS: clonazePAM 0.5 MG TABLET PO SCH (22:49)
[2020-10-19] MEDS: ARIPiprazole 10 MG TABLET PO SCH (22:50)
[2020-10-19] MEDS: QUEtiapine 100 MG TABLET PO SCH (22:50)
[2020-10-19] MEDS: FONDAPARINUX 2.5 MG/0.5 ML SYRINGE SUBCUT SCH (22:53)
[2020-10-20] MEDS: PIPERACILLIN/TAZOBACTAM 3,375 MG in SODIUM CHLORIDE 0.9% 100 ML IV SCH ×4 (00:46→23:18)
[2020-10-20] MEDS: MORPHINE 4 MG/1 ML VIAL IV PRN ×7 (00:46→21:05)
[2020-10-20] MEDS: LACTATED RINGERS 1,000 ML IV SCH ×2 (02:42→16:23)
[2020-10-20] MEDS: ALBUMIN 5% 12.5 GM in PREMIX 1 EACH IV SCH ×3 (04:46→21:02)
[2020-10-20 05:49] LABS: Basophils % 0.5 % (0.0-0.8); Eosinophils # 0.1 10*3/uL (0.0-0.87); Eosinophils % 1.8 % (0.00-10.9); Hematocrit 30.8 VOL% (35.7-47.0); Hemoglobin 9.7 GM/DL (12.0-16.0); Immature Granulocytes % 1.2 %; Immature Granulocytes Absolute 0.07 #; Lymphocytes # 1.3 10*3/uL (1.4-4.0); Lymphocytes % 21.9 % (21.3-54.2); Mean Corpuscular HGB Conc 31.5 GM/DL (32-36); Mean Corpuscular Volume 87.5 FL (87-102); Monocytes % 9.9 % (1.7-12.7); Neutrophils % 64.7 % (38.7-73.9); Platelet Count 130 T/CUMM (130-400); Red Blood Count 3.52 MC/CUMM (3.8-5.5); Red Cell Distribution Width 14.7 % (9.3-17.3); White Blood Count 6.1 T/CUMM (4-12)
[2020-10-20 06:08] LABS: Calcium 8.2 MG/DL (8.5-10.1); Osmolality,Calculated 279.1 MOS/KG (273-304); Potassium 3.8 MMOL/L (3.5-5.1)
[2020-10-20 06:15] LABS: Hypochromasia 1+; Microcytosis 1+
[2020-10-20] MEDS: ZINC IV SCH ×2 (06:30→09:05)
[2020-10-20] MEDS: POTASSIUM CHLORIDE IV SCH ×2 (06:30→09:05)
[2020-10-20] MEDS: MANGANESE IV SCH ×2 (06:30→09:05)
[2020-10-20] MEDS: [UNRECOGNIZED DRUG - OTHER] IV SCH ×2 (06:30→09:05)
[2020-10-20] MEDS: SELENIUM IV SCH ×2 (06:30→09:05)
[2020-10-20] MEDS: COPPER IV SCH ×2 (06:30→09:05)
[2020-10-20] MEDS: MENTHOL/ZINC OXIDE OINT 71 GM JAR TOP SCH ×2 (09:06→21:06)
[2020-10-20] MEDS: lamoTRIgine 100 MG TABLET PO SCH (09:06)
[2020-10-20] MEDS: PANTOPRAZOLE 40 MG VIAL IV SCH (09:07)
[2020-10-20] MEDS: INSULIN GLARGINE 100 UNIT/ML SUBCUT SCH ×2 (09:07→21:05)
[2020-10-20] MEDS: FLUoxetine 20 MG CAPSULE PO SCH (09:07)
[2020-10-20] MEDS: INSULIN REGULAR 100 UNIT/ML SUBCUT SCH ×4 (09:07→21:04)
[2020-10-20] MEDS: LEVOFLOXACIN INJ 750 MG in PREMIX 1 EACH IV SCH (10:19)
[2020-10-20] MEDS ORDERED: LEVOFLOXACIN INJ 750 MG in PREMIX 1 EACH IV SCH (12:00)
[2020-10-20] MEDS: FAT EMULSION 20% 250 ML IV SCH (15:05)
[2020-10-20] MEDS: clonazePAM 0.5 MG TABLET PO SCH (21:03)
[2020-10-20] MEDS: FONDAPARINUX 2.5 MG/0.5 ML SYRINGE SUBCUT SCH (21:03)
[2020-10-20] MEDS: QUEtiapine 100 MG TABLET PO SCH (21:03)
[2020-10-20] MEDS: ARIPiprazole 10 MG TABLET PO SCH (21:04)
[2020-10-20] MEDS: ONDANSETRON 4 MG/2 ML VIAL IV PRN (21:05)
[2020-10-21] MEDS: ONDANSETRON 4 MG/2 ML VIAL IV PRN ×4 (01:25→18:00)
[2020-10-21] MEDS: MORPHINE 4 MG/1 ML VIAL IV PRN ×5 (01:25→23:49)
[2020-10-21] MEDS: ALBUMIN 5% 12.5 GM in PREMIX 1 EACH IV SCH (05:23)
[2020-10-21 05:43] LABS: Calcium 8.2 MG/DL (8.5-10.1); Osmolality,Calculated 277.2 MOS/KG (273-304); Potassium 4.1 MMOL/L (3.5-5.1)
[2020-10-21] MEDS: PIPERACILLIN/TAZOBACTAM 3,375 MG in SODIUM CHLORIDE 0.9% 100 ML IV SCH (06:23)
[2020-10-21] MEDS: MULTIVITAMIN IV SCH (06:27)
[2020-10-21] MEDS: ZINC IV SCH (06:27)
[2020-10-21] MEDS: COPPER IV SCH (06:27)
[2020-10-21] MEDS: MANGANESE IV SCH (06:27)
[2020-10-21] MEDS: [UNRECOGNIZED DRUG - OTHER] IV SCH (06:27)
[2020-10-21] MEDS: SELENIUM IV SCH (06:27)
[2020-10-21] MEDS: INSULIN REGULAR 100 UNIT/ML SUBCUT SCH ×4 (09:19→21:18)
[2020-10-21] MEDS: MENTHOL/ZINC OXIDE OINT 71 GM JAR TOP SCH ×2 (09:19→21:17)
[2020-10-21] MEDS: INSULIN GLARGINE 100 UNIT/ML SUBCUT SCH ×2 (09:19→21:18)
[2020-10-21] MEDS: LACTATED RINGERS 1,000 ML IV SCH (09:20)
[2020-10-21] MEDS: PANTOPRAZOLE 40 MG VIAL IV SCH (09:20)
[2020-10-21] MEDS: FLUoxetine 20 MG CAPSULE PO SCH (09:20)
[2020-10-21] MEDS: lamoTRIgine 100 MG TABLET PO SCH (09:20)
[2020-10-21] MEDS: METOCLOPRAMIDE 10 MG/2 ML VIAL IV SCH ×3 (11:53→23:49)
[2020-10-21] MEDS: FAT EMULSION 20% 250 ML IV SCH (16:21)
[2020-10-21] MEDS: FONDAPARINUX 2.5 MG/0.5 ML SYRINGE SUBCUT SCH (21:18)
[2020-10-21] MEDS: clonazePAM 0.5 MG TABLET PO SCH (22:39)
[2020-10-21] MEDS ORDERED: PROMETHAZINE 25 MG/1 ML VIAL IM PRN (23:24)
[2020-10-22] MEDS: MORPHINE 4 MG/1 ML VIAL IV PRN ×3 (04:28→12:32)
[2020-10-22] MEDS: ONDANSETRON 4 MG/2 ML VIAL IV PRN ×3 (04:28→12:29)
[2020-10-22] MEDS: SELENIUM IV SCH (04:29)
[2020-10-22] MEDS: COPPER IV SCH (04:29)
[2020-10-22] MEDS: [UNRECOGNIZED DRUG - OTHER] IV SCH (04:29)
[2020-10-22] MEDS: ZINC IV SCH (04:29)
[2020-10-22] MEDS: MANGANESE IV SCH (04:29)
[2020-10-22] MEDS: POTASSIUM CHLORIDE IV SCH (04:29)
[2020-10-22] MEDS: METOCLOPRAMIDE 10 MG/2 ML VIAL IV SCH ×2 (05:20→13:03)
[2020-10-22] MEDS: INSULIN REGULAR 100 UNIT/ML SUBCUT SCH ×3 (08:28→16:50)
[2020-10-22] MEDS: INSULIN GLARGINE 100 UNIT/ML SUBCUT SCH (09:22)
[2020-10-22] MEDS: lamoTRIgine 100 MG TABLET PO SCH (09:22)
[2020-10-22] MEDS ORDERED: LIDOCAINE 1% 20 ML VIAL MISC INJ ONE (09:24)
[2020-10-22] MEDS: MENTHOL/ZINC OXIDE OINT 71 GM JAR TOP SCH (10:50)
[2020-10-22] MEDS: PANTOPRAZOLE 40 MG VIAL IV SCH (13:00)
[2020-10-22] MEDS: FAT EMULSION 20% 250 ML IV SCH (16:50)
[2020-10-22 20:52] VITALS: BP 106/50
== END 2020-10-22 16:50 | disposition hospice, home (50) | DRG 327 ==
LOC: N.ED 13:01 → N.EDINP 17:16 → SUATTDRO 17:16 → N.5E 19:35 → N.4E 10-11 12:36
PROVIDERS: ADMIT Family Medicine; ATTEND Family Medicine

== ENCOUNTER 2020-10-25 21:10 | Inpatient (IN) ==
[2020-10-25] MEDS ORDERED: SODIUM CHLORIDE 0.9% 500 ML IV STA ×2 (21:38→23:03)
[2020-10-25 21:58] LABS: Basophils % 0.2 % (0.0-0.8); Eosinophils % 0.1 % (0.00-10.9); Hematocrit 34.3 VOL% (35.7-47.0); Hemoglobin 10.6 GM/DL (12.0-16.0); Immature Granulocytes % 0.9 %; Immature Granulocytes Absolute 0.08 #; Lymphocytes # 1.8 10*3/uL (1.4-4.0); Lymphocytes % 19.5 % (21.3-54.2); Mean Corpuscular HGB Conc 30.9 GM/DL (32-36); Mean Corpuscular Volume 85.8 FL (87-102); Mean Platelet Volume 11.1 FL (9.6-12.0); Monocytes % 4.5 % (1.7-12.7); Neutrophils % 74.8 % (38.7-73.9); Platelet Count 278 T/CUMM (130-400); Red Cell Distribution Width 15.1 % (9.3-17.3)
[2020-10-25 22:05] LABS: INR 1.2; PT Patient Result 13.2 SECS (9.8-11.9)
[2020-10-25 22:15] LABS: Alanine Aminotransferase 32 U/L (13-56); Albumin 1.9 G/DL (3.4-5.0); Alkaline Phosphatase 228 U/L (45-117); Aspartate Amino Transferase 87 U/L (0-37); Blood Urea Nitrogen 20 MG/DL (7-18); Calcium 6.9 MG/DL (8.5-10.1); Carbon Dioxide 28 MMOL/L (21-32); Estimated Glom Filtration Rate 78 ML/MIN; Glucose 203 MG/DL (74-106); Osmolality,Calculated 283.7 MOS/KG (273-304); Sodium 138 MMOL/L (136-145); Total Protein 7.6 G/DL (6.4-8.3); Troponin I < 0.015 NG/ML (0.00-0.045)
[2020-10-25 22:50] LABS: Bilirubin,Urine Negative (Negative); Blood, Urine Large mg/dL (Negative); Glucose,Urine (UA) Negative (Negative); Granular Casts,Urine 50 /LPF (0-1); Hyaline Casts,Urine 13 /LPF (0-3); Ketones,Urine Negative (Negative); Mucus,Urine Few /LPF (Occasional); Nitrite,Urine Negative (Negative); Protein,Urine 100 MG/DL; RBC,Urine 51 /HPF (0-4); Urine Appearance CLOUDY (Clear); Urine Color Amber (Yellow); Urine Specific Gravity 1.025 (1.001-1.035); WBC,Urine 27 /HPF (0-6)
[2020-10-25] MEDS ORDERED: VANCOMYCIN INJ 1,250 MG in SODIUM CHLORIDE 0.9% 250 ML IV STA (23:03)
[2020-10-25] MEDS ORDERED: PIPERACILLIN/TAZOBACTAM 3,375 MG in SODIUM CHLORIDE 0.9% 100 ML IV STA (23:03)
[2020-10-26] MEDS ORDERED: hydrALAZINE 20 MG/1 ML VIAL IV PRN (00:36)
[2020-10-26] MEDS ORDERED: GLUCAGON 1 MG VIAL IM PRN (00:36)
[2020-10-26] MEDS ORDERED: ONDANSETRON 4 MG/2 ML VIAL IV PRN (00:36)
[2020-10-26] MEDS ORDERED: NICOTINE 21 MG/24 HR PATCH TRANSDERM PRN (00:36)
[2020-10-26] MEDS ORDERED: DEXTROSE 50% 25 GM/50 ML VIAL IV PRN (00:36)
[2020-10-26] MEDS ORDERED: AZITHROMYCIN INJ 500 MG in SODIUM CHLORIDE 0.9% 250 ML IV ONE (00:36)
[2020-10-26] MEDS: ACETAMINOPHEN 650 MG SUPP RECTAL PRN ×2 (02:00→22:00)
[2020-10-26] MEDS ORDERED: VANCOMYCIN INJ 1,000 MG in SODIUM CHLORIDE 0.9% 250 ML IV ONE ×2 (02:30→04:00)
[2020-10-26] MEDS: SODIUM CHLORIDE 0.9% 1,000 ML IV SCH ×3 (02:31→17:13)
[2020-10-26 05:50] LABS: Basophils % 0.4 % (0.0-0.8); Hematocrit 32.3 VOL% (35.7-47.0); Immature Granulocytes % 0.8 %; Immature Granulocytes Absolute 0.06 #; Lymphocytes # 2.1 10*3/uL (1.4-4.0); Lymphocytes % 27.7 % (21.3-54.2); Mean Corpuscular Volume 87.3 FL (87-102); Monocytes % 4.9 % (1.7-12.7); Neutrophils % 66.2 % (38.7-73.9); Platelet Count 222 T/CUMM (130-400); Red Cell Distribution Width 15.3 % (9.3-17.3); White Blood Count 7.5 T/CUMM (4-12)
[2020-10-26 06:16] LABS: Hypochromasia 1+; Lymphocytes 29 % (20-55); Microcytosis 1+; Platelet Estimate Adequate; Segmented Neutrophils 68 % (50-85); Total Cells Counted 100
[2020-10-26] MEDS: PIPERACILLIN/TAZOBACTAM 3,375 MG in SODIUM CHLORIDE 0.9% 100 ML IV SCH ×3 (09:24→23:51)
[2020-10-26] MEDS: DEXAMETHASONE 4 MG/1 ML VIAL IV SCH (09:25)
[2020-10-26] MEDS: INSULIN REGULAR 100 UNIT/ML SUBCUT SCH ×4 (09:25→20:59)
[2020-10-26] MEDS: ENOXAPARIN 40 MG/0.4 ML SYRINGE SUBCUT SCH (09:25)
[2020-10-26] MEDS: DESITIN 4OZ/NYSTATIN 15 GRAM MIXTURE PASTE TOP SCH ×2 (12:44→20:59)
[2020-10-26] MEDS: VANCOMYCIN INJ 2,500 MG in SODIUM CHLORIDE 0.9% 500 ML IV SCH (20:59)
[2020-10-27 04:22] LABS: Basophils % 0.2 % (0.0-0.8); Hematocrit 29.1 VOL% (35.7-47.0); Hemoglobin 8.9 GM/DL (12.0-16.0); Immature Granulocytes % 0.8 %; Immature Granulocytes Absolute 0.04 #; Lymphocytes % 19.5 % (21.3-54.2); Mean Corpuscular HGB Conc 30.6 GM/DL (32-36); Monocytes % 3.4 % (1.7-12.7); Neutrophils % 76.1 % (38.7-73.9); Platelet Count 188 T/CUMM (130-400); Red Blood Count 3.27 MC/CUMM (3.8-5.5); Red Cell Distribution Width 15.6 % (9.3-17.3); White Blood Count 5.2 T/CUMM (4-12)
[2020-10-27 04:49] LABS: Albumin 1.6 G/DL (3.4-5.0); Bilirubin,Total 0.7 MG/DL (0.2-1.0); Calcium 6.8 MG/DL (8.5-10.1); Total Protein 6.8 G/DL (6.4-8.3)
[2020-10-27 05:59] LABS: Band Neutrophils 2 % (0-10); Lymphocytes 14 % (20-55); Segmented Neutrophils 79 % (50-85); Total Cells Counted 100
[2020-10-27 06:00] LABS: Anisocytosis 1+; Macrocytosis 1+; Platelet Estimate Normal
[2020-10-27] MEDS: INSULIN REGULAR 100 UNIT/ML SUBCUT SCH ×4 (09:40→20:35)
[2020-10-27] MEDS: ENOXAPARIN 40 MG/0.4 ML SYRINGE SUBCUT SCH (09:40)
[2020-10-27] MEDS: DESITIN 4OZ/NYSTATIN 15 GRAM MIXTURE PASTE TOP SCH ×2 (09:40→21:30)
[2020-10-27] MEDS: DEXAMETHASONE 4 MG/1 ML VIAL IV SCH (09:40)
[2020-10-27] MEDS: PIPERACILLIN/TAZOBACTAM 3,375 MG in SODIUM CHLORIDE 0.9% 100 ML IV SCH ×2 (09:43→16:32)
[2020-10-27] MEDS: SODIUM CHLORIDE 0.9% 1,000 ML IV SCH (17:01)
[2020-10-27] MEDS: VANCOMYCIN INJ 2,500 MG in SODIUM CHLORIDE 0.9% 500 ML IV SCH (20:35)
[2020-10-28] MEDS: PIPERACILLIN/TAZOBACTAM 3,375 MG in SODIUM CHLORIDE 0.9% 100 ML IV SCH ×3 (02:15→16:35)
[2020-10-28 04:38] LABS: Basophils % 0.2 % (0.0-0.8); Hematocrit 29.3 VOL% (35.7-47.0); Hemoglobin 8.8 GM/DL (12.0-16.0); Immature Granulocytes % 0.7 %; Immature Granulocytes Absolute 0.04 #; Lymphocytes # 0.9 10*3/uL (1.4-4.0); Lymphocytes % 15.5 % (21.3-54.2); Mean Corpuscular Volume 89.3 FL (87-102); Mean Platelet Volume 10.9 FL (9.6-12.0); Monocytes % 2.6 % (1.7-12.7); Platelet Count 185 T/CUMM (130-400); Red Blood Count 3.28 MC/CUMM (3.8-5.5); Red Cell Distribution Width 15.7 % (9.3-17.3); White Blood Count 5.7 T/CUMM (4-12)
[2020-10-28 04:57] LABS: Calcium 7.3 MG/DL (8.5-10.1); Osmolality,Calculated 306.3 MOS/KG (273-304); Potassium 3.5 MMOL/L (3.5-5.1)
[2020-10-28] MEDS: INSULIN REGULAR 100 UNIT/ML SUBCUT SCH ×4 (07:34→21:55)
[2020-10-28] MEDS: DESITIN 4OZ/NYSTATIN 15 GRAM MIXTURE PASTE TOP SCH ×2 (09:10→21:55)
[2020-10-28] MEDS: DEXAMETHASONE 4 MG/1 ML VIAL IV SCH (09:10)
[2020-10-28] MEDS: ENOXAPARIN 40 MG/0.4 ML SYRINGE SUBCUT SCH (09:10)
[2020-10-28] MEDS: fentaNYL 25 MCG/HR PATCH TRANSDERM SCH (16:35)
[2020-10-28] MEDS: SODIUM CHLORIDE 0.45% 1,000 ML IV SCH (16:35)
[2020-10-29] MEDS: SODIUM CHLORIDE 0.9% 1,000 ML IV SCH (01:33)
[2020-10-29] MEDS: PIPERACILLIN/TAZOBACTAM 3,375 MG in SODIUM CHLORIDE 0.9% 100 ML IV SCH ×3 (01:45→16:21)
[2020-10-29] MEDS: SODIUM CHLORIDE 0.45% 1,000 ML IV SCH ×2 (01:45→05:20)
[2020-10-29 07:51] LABS: Basophils % 0.1 % (0.0-0.8); Hematocrit 33.9 VOL% (35.7-47.0); Hemoglobin 10.2 GM/DL (12.0-16.0); Immature Granulocytes % 0.9 %; Immature Granulocytes Absolute 0.06 #; Lymphocytes # 0.9 10*3/uL (1.4-4.0); Lymphocytes % 13.2 % (21.3-54.2); Mean Corpuscular HGB Conc 30.1 GM/DL (32-36); Neutrophils % 83.8 % (38.7-73.9); Platelet Count 217 T/CUMM (130-400); Red Blood Count 3.81 MC/CUMM (3.8-5.5); Red Cell Distribution Width 16.1 % (9.3-17.3)
[2020-10-29 08:10] LABS: Albumin 1.9 G/DL (3.4-5.0); Bilirubin,Total 0.9 MG/DL (0.2-1.0); Calcium 7.9 MG/DL (8.5-10.1); Hypochromasia 1+; Lymphocytes 6 % (20-55); Microcytosis 1+; Osmolality,Calculated 313.9 MOS/KG (273-304); Platelet Estimate Adequate; Potassium 3.4 MMOL/L (3.5-5.1); Segmented Neutrophils 92 % (50-85); Total Cells Counted 100; Total Protein 7.7 G/DL (6.4-8.3)
[2020-10-29] MEDS: INSULIN REGULAR 100 UNIT/ML SUBCUT SCH ×4 (09:02→21:10)
[2020-10-29] MEDS: ENOXAPARIN 40 MG/0.4 ML SYRINGE SUBCUT SCH (09:02)
[2020-10-29] MEDS: DEXAMETHASONE 4 MG/1 ML VIAL IV SCH (09:02)
[2020-10-29] MEDS: DESITIN 4OZ/NYSTATIN 15 GRAM MIXTURE PASTE TOP SCH ×2 (09:03→21:05)
[2020-10-29] MEDS: INSULIN GLARGINE 100 UNIT/ML SUBCUT SCH (21:07)
[2020-10-29] MEDS: clonazePAM 0.5 MG TABLET PO SCH (22:08)
[2020-10-30] MEDS: SODIUM CHLORIDE 0.45% 1,000 ML IV SCH ×3 (04:46→20:41)
[2020-10-30] MEDS: PIPERACILLIN/TAZOBACTAM 3,375 MG in SODIUM CHLORIDE 0.9% 100 ML IV SCH ×3 (06:43→16:41)
[2020-10-30] MEDS: DEXAMETHASONE 4 MG/1 ML VIAL IV SCH (09:16)
[2020-10-30] MEDS: INSULIN GLARGINE 100 UNIT/ML SUBCUT SCH ×2 (09:16→20:35)
[2020-10-30] MEDS: ENOXAPARIN 40 MG/0.4 ML SYRINGE SUBCUT SCH (09:16)
[2020-10-30] MEDS: INSULIN REGULAR 100 UNIT/ML SUBCUT SCH ×4 (09:16→20:40)
[2020-10-30] MEDS: ACETAMINOPHEN 650 MG SUPP RECTAL PRN ×2 (09:17→18:00)
[2020-10-30] MEDS: lamoTRIgine 100 MG TABLET PO SCH (09:17)
[2020-10-30] MEDS: DESITIN 4OZ/NYSTATIN 15 GRAM MIXTURE PASTE TOP SCH ×2 (09:18→20:34)
[2020-10-30] MEDS: MORPHINE 4 MG/1 ML VIAL IV PRN ×2 (14:07→19:45)
[2020-10-30] MEDS: clonazePAM 0.5 MG TABLET PO SCH (20:34)
[2020-10-31] MEDS: PIPERACILLIN/TAZOBACTAM 3,375 MG in SODIUM CHLORIDE 0.9% 100 ML IV SCH ×3 (01:08→21:34)
[2020-10-31] MEDS: MORPHINE 4 MG/1 ML VIAL IV PRN ×4 (01:28→21:28)
[2020-10-31 06:52] LABS: Basophils % 0.2 % (0.0-0.8); Hemoglobin 9.1 GM/DL (12.0-16.0); Immature Granulocytes % 1.1 %; Immature Granulocytes Absolute 0.07 #; Lymphocytes # 0.9 10*3/uL (1.4-4.0); Lymphocytes % 14.7 % (21.3-54.2); Mean Corpuscular HGB Conc 29.4 GM/DL (32-36); Mean Corpuscular Volume 90.1 FL (87-102); Mean Platelet Volume 11.2 FL (9.6-12.0); Monocytes % 2.4 % (1.7-12.7); Neutrophils % 81.6 % (38.7-73.9); Platelet Count 135 T/CUMM (130-400); Red Blood Count 3.44 MC/CUMM (3.8-5.5); Red Cell Distribution Width 16.4 % (9.3-17.3); White Blood Count 6.2 T/CUMM (4-12)
[2020-10-31 07:12] LABS: Calcium 7.2 MG/DL (8.5-10.1); Osmolality,Calculated 312.7 MOS/KG (273-304); Potassium 3.3 MMOL/L (3.5-5.1)
[2020-10-31 07:13] LABS: Albumin 1.5 G/DL (3.4-5.0); Bilirubin,Total 1.1 MG/DL (0.2-1.0); Total Protein 6.6 G/DL (6.4-8.3)
[2020-10-31 07:18] LABS: Hypochromasia 1+; Microcytosis 1+; Platelet Estimate Adequate
[2020-10-31] MEDS: HYDROmorphone 2 MG/1 ML VIAL IV PRN ×2 (10:02→13:56)
[2020-10-31] MEDS: INSULIN REGULAR 100 UNIT/ML SUBCUT SCH ×4 (10:05→21:21)
[2020-10-31] MEDS: DESITIN 4OZ/NYSTATIN 15 GRAM MIXTURE PASTE TOP SCH ×2 (10:05→21:33)
[2020-10-31] MEDS: DEXAMETHASONE 4 MG/1 ML VIAL IV SCH (10:06)
[2020-10-31] MEDS: lamoTRIgine 100 MG TABLET PO SCH (10:10)
[2020-10-31] MEDS: ENOXAPARIN 40 MG/0.4 ML SYRINGE SUBCUT SCH (10:10)
[2020-10-31] MEDS: INSULIN GLARGINE 100 UNIT/ML SUBCUT SCH ×2 (10:10→21:23)
[2020-10-31] MEDS: fentaNYL 25 MCG/HR PATCH TRANSDERM SCH (10:13)
[2020-10-31] MEDS: SODIUM CHLORIDE 0.45% 1,000 ML IV SCH (15:48)
[2020-10-31] MEDS: POTASSIUM CHLORIDE RIDER 10 MEQ in PREMIX 1 EACH IV PRN ×2 (15:50→17:06)
[2020-10-31] MEDS: ACETAMINOPHEN 650 MG SUPP RECTAL PRN ×2 (16:40→21:30)
[2020-10-31] MEDS ORDERED: SODIUM CHLORIDE 0.9% 500 ML IV ONE (17:48)
[2020-10-31] MEDS: clonazePAM 0.5 MG TABLET PO SCH (21:33)
[2020-10-31] MEDS: VANCOMYCIN INJ 2,000 MG in SODIUM CHLORIDE 0.9% 500 ML IV SCH (21:33)
[2020-11-01] MEDS: SODIUM CHLORIDE 0.45% 1,000 ML IV SCH (00:29)
[2020-11-01] MEDS: PIPERACILLIN/TAZOBACTAM 3,375 MG in SODIUM CHLORIDE 0.9% 100 ML IV SCH ×2 (00:37→09:00)
[2020-11-01] MEDS: MORPHINE 4 MG/1 ML VIAL IV PRN ×4 (01:28→07:31)
[2020-11-01] MEDS: VANCOMYCIN INJ 2,000 MG in SODIUM CHLORIDE 0.9% 500 ML IV SCH (05:07)
[2020-11-01 06:03] LABS: Calcium 7.7 MG/DL (8.5-10.1); Osmolality,Calculated 323.3 MOS/KG (273-304); Potassium 3.6 MMOL/L (3.5-5.1)
[2020-11-01 06:04] LABS: Albumin 1.7 G/DL (3.4-5.0); Bilirubin,Total 0.9 MG/DL (0.2-1.0); Osmolality,Calculated 325.3 MOS/KG (273-304); Potassium 3.6 MMOL/L (3.5-5.1); Total Protein 7.6 G/DL (6.4-8.3)
[2020-11-01 06:46] LABS: Basophils % 0.2 % (0.0-0.8); Immature Granulocytes % 0.7 %; Immature Granulocytes Absolute 0.06 #; Lymphocytes # 1.5 10*3/uL (1.4-4.0); Lymphocytes % 17.2 % (21.3-54.2); Mean Corpuscular HGB Conc 28.5 GM/DL (32-36); Mean Corpuscular Volume 94.3 FL (87-102); Mean Platelet Volume 12.6 FL (9.6-12.0); Monocytes % 1.6 % (1.7-12.7); Neutrophils % 80.3 % (38.7-73.9); Platelet Count 132 T/CUMM (130-400); Red Cell Distribution Width 16.6 % (9.3-17.3); White Blood Count 8.8 T/CUMM (4-12)
[2020-11-01 06:49] LABS: Hemoglobin 9.4 GM/DL (12.0-16.0)
[2020-11-01 07:19] LABS: Hypochromasia 1+; Microcytosis 1+; Platelet Estimate Adequate
[2020-11-01] MEDS: ENOXAPARIN 40 MG/0.4 ML SYRINGE SUBCUT SCH (08:56)
[2020-11-01] MEDS: ACETAMINOPHEN 650 MG SUPP RECTAL PRN (08:57)
[2020-11-01] MEDS: DEXAMETHASONE 4 MG/1 ML VIAL IV SCH (08:58)
[2020-11-01] MEDS: INSULIN REGULAR 100 UNIT/ML SUBCUT SCH ×2 (08:59→11:43)
[2020-11-01] MEDS: DESITIN 4OZ/NYSTATIN 15 GRAM MIXTURE PASTE TOP SCH (09:00)
[2020-11-01] MEDS: lamoTRIgine 100 MG TABLET PO SCH (09:23)
[2020-11-01] MEDS: INSULIN GLARGINE 100 UNIT/ML SUBCUT SCH (09:25)
[2020-11-01] MEDS ORDERED: LORazepam 2 MG/1 ML VIAL IV PRN ×2 (09:34→13:44)
[2020-11-01] MEDS ORDERED: MORPHINE 4 MG/1 ML VIAL IV PRN ×2 (09:34→13:42)
[2020-11-01 11:51] VITALS: BP 128/77
[2020-11-01] MEDS ORDERED: ONDANSETRON 4 MG/2 ML VIAL IV PRN (13:47)
[2020-11-01] MEDS ORDERED: ACETAMINOPHEN 650 MG SUPP RECTAL PRN ×2 (13:48→13:49)
[2020-11-04] MEDS ORDERED: fentaNYL 50 MCG/HR PATCH TRANSDERM SCH ×2 (09:00)
== END 2020-11-01 12:40 | disposition hospice, inpatient (51) | DRG 871 ==
LOC: N.ED 21:10 → SUATTDRO 10-26 00:36 → N.EDINP 10-26 00:36 → N.2E 10-26 00:57
PROVIDERS: ADMIT Internal Medicine; ATTEND Internal Medicine

== ENCOUNTER 2020-11-01 13:05 | Inpatient (IN) ==
[2020-11-01] MEDS ORDERED: ONDANSETRON 4 MG/2 ML VIAL IV PRN (14:07)
[2020-11-01] MEDS ORDERED: ACETAMINOPHEN 650 MG SUPP RECTAL PRN ×2 (14:07→14:08)
[2020-11-01] MEDS: MORPHINE 4 MG/1 ML VIAL IV PRN (14:52)
[2020-11-01] MEDS: LORazepam 2 MG/1 ML VIAL IV PRN ×2 (17:00→23:13)
[2020-11-02] MEDS: MORPHINE 4 MG/1 ML VIAL IV PRN ×5 (01:08→13:06)
[2020-11-02] MEDS: LORazepam 2 MG/1 ML VIAL IV PRN ×2 (02:13→10:28)
[2020-11-02 08:29] VITALS: BP 111/69
[2020-11-04] MEDS ORDERED: fentaNYL 50 MCG/HR PATCH TRANSDERM SCH (09:00)
== END 2020-11-02 16:05 | disposition expired | DRG 951 ==
LOC: N.2E 13:05
PROVIDERS: ADMIT Internal Medicine; ATTEND Internal Medicine